=== PATIENT | female | born 1990 | race African-American/Black ===

== ENCOUNTER 2018-10-21 14:59 | Emergency (ER) | payer SELFPAY ==
[~2018-10-21] VITALS: Ht 170.2 cm; Wt 62.6 kg
--- NOTE | 2018-10-21 15:12 | NUR ---
ED Nurse Note: Called patient. Patient not in waiting room.
[2018-10-21 15:30] VITALS: BP 120/75
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
[2018-10-21] MEDS ORDERED: NKM (15:31)
[2018-10-21] MEDS ORDERED: Methocarbamol 750mg tab ORAL ONE (16:00)
[2018-10-21] MEDS ORDERED: TYLENOL EXTRA500 MG ORAL (16:10)
[2018-10-21] MEDS ORDERED: ROBAXIN-750750 MG PO (16:10)
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
[2018-10-21 17:04] VITALS: BP 122/76
--- NOTE | 2018-10-21 17:04 | NUR ---
ER DISCHARGE NOTE: Patient is cleared to be discharged per ERMD, pt is aox4, on room air, with stable vital signs. pt was given dc and prescription instructions, pt was able to verbalize understanding, pt id band removed without complications. pt is able to ambulate with steady gait. pt took all belongings.
== END 2018-10-21 17:04 | disposition home or self-care (01) ==
LOC: EMR 16:01
DX: M54.5 Low back pain (principal); T14.8XXA Other injury of unspecified body region, initial encounter; V47.5XXA Car driver injured in collision with fixed or stationary object in traffic accident, initial encounter; Y92.410 Unspecified street and highway as the place of occurrence of the external cause
CPT/HCPCS: 99283